=== PATIENT | female | born 1975 | race Caucasian/White ===

== ENCOUNTER 2017-07-26 22:27 | Emergency (ER) | payer OTHER ==
[~2017-07-26] VITALS: Ht 147.3 cm; Wt 70.3 kg
[2017-07-26 22:36] VITALS: BP 143/90
--- NOTE | 2017-07-26 23:56 | NUR ---
TO ER BED 03
[2017-07-26 23:58] VITALS: BP 143/90
--- NOTE | 2017-07-27 00:01 | NUR ---
PATIENT PRESENTS TO ED WITH C/O HEADACHE X 5 HRS. HX. MIGRAINE PT DENIES N/V/D; SKIN IS PINK/WARM/DRY; AAOX4 WITH EVEN AND STEADY GAIT; LUNGS CLEAR BL; HR EVEN AND REGULAR; PT DENIES ANY FEVER, CP, SOB, OR COUGH AT THIS TIME; PATIENT STATES PAIN OF 10/10 AT THIS TIME; VSS; PATIENT POSITIONED FOR COMFORT; HOB ELEVATED; BEDRAILS UP X2; BED DOWN. ER MD MADE AWARE OF PT STATUS.
[2017-07-27] MEDS ORDERED: METOCLOPRAMIDE 10 MG/2 ML INJ VIAL IVP ONE (01:15)
[2017-07-27] MEDS ORDERED: KETOROLAC 30 MG/ML VIAL IVP ONE (01:15)
[2017-07-27] MEDS ORDERED: NACL 0.9% 1,000 ML IV ONE (01:15)
[2017-07-27] MEDS ORDERED: ACETAMINOPHEN EXTRA STRENGTH 500 MG TAB PO ONE (01:15)
[2017-07-27] MEDS ORDERED: DEXAMETHASONE 10 MG/ML VIAL IVP ONE (02:15)
== END 2017-07-27 03:25 | disposition home or self-care (01) ==
LOC: MED 22:27
DX: G43.909 Migraine, unspecified, not intractable, without status migrainosus (principal); F17.200 Nicotine dependence, unspecified, uncomplicated; Z88.2 Allergy status to sulfonamides; Z88.5 Allergy status to narcotic agent; Z90.49 Acquired absence of other specified parts of digestive tract
CPT/HCPCS: 81002; 81025; 96361; 96374; 96375; 99284; J1100; J1885; J2765; J7030

== ENCOUNTER 2018-09-01 21:53 | Emergency (ER) | payer OTHER ==
[~2018-09-01] VITALS: Ht 147.3 cm; Wt 72.6 kg
[2018-09-01 22:06] VITALS: BP 134/108
--- NOTE | 2018-09-01 22:20 | NUR ---
PT BIB FAMILY C/O SOB X4 HOURS AGO. PT STATES SHE WAS DRIVING HOME AND HAD SUDDEN ONSET OF SOB. LUNG SOUNDS COARSE IN UPPER LOBES BL. MILD LABORED BREATHING. DENIES RECENT ILLNESS, FEVER, CHILLS, OR CP. --DENIES N/V/D. AAOX4. SKIN WARM DRY INTACT. PT IN BED; BED IN LOWER LOCKED POSITION. ER MD MADE AWARE OF PT STATUS. PMH: DENIES RX: DENIES
[2018-09-01] MEDS ORDERED: RACEPINEPHRINE 2.25% 13.5 MG/0.5 ML NEBU INH ONE (23:05)
--- NOTE | 2018-09-01 23:07 | NUR ---
PT TO RADIOLOGY VIA WHEELCHAIR BY TECH.
[2018-09-02 00:04] VITALS: BP 136/70
--- NOTE | 2018-09-02 00:04 | NUR ---
Patient discharged with v/s stable. Written and verbal after care instructions given and explained. Patient alert, oriented and verbalized understanding of instructions. Ambulatory with steady gait. All questions addressed prior to discharge. ID band removed. Patient advised to follow up with PMD. Rx of PROMETHAZINE DM given. Patient educated on indication of medication including possible reaction and side effects. Opportunity to ask questions provided and answered.
== END 2018-09-02 00:04 | disposition home or self-care (01) ==
LOC: MED 21:53
DX: J04.0 Acute laryngitis (principal); Z88.5 Allergy status to narcotic agent
CPT/HCPCS: 70360; 81002; 81025; 94640; 99283

== ENCOUNTER 2019-03-02 13:16 | Emergency (ER) | payer OTHER ==
[~2019-03-02] VITALS: Ht 144.8 cm; Wt 79.4 kg
[2019-03-02 13:28] VITALS: BP 136/59
--- NOTE | 2019-03-02 13:31 | NUR ---
PT AMBULATED TO LOBBY AT THIS TIME, VSS.
--- NOTE | 2019-03-02 14:00 | NUR ---
PT TAKEN TO CHAIR E.
--- NOTE | 2019-03-02 14:10 | NUR ---
43/F presents to ED with complaints of left eye pain starting last night. Pt describes pain as non provoked, constant, throbbing with some numbness to left side of face. Patient noted with swelling to left eye lid. Pt denies changes in vision. Denies any injury or trauma. Denies wearing contacts. No drainage noted.
[2019-03-02] MEDS ORDERED: KETOROLAC 60 MG/2 ML VIAL IM ONE (14:40)
[2019-03-02 15:14] VITALS: BP 136/59
--- NOTE | 2019-03-02 15:14 | NUR ---
Patient discharged with v/s stable. Written and verbal after care instructions given and explained. Patient alert, oriented and verbalized understanding of instructions. Ambulatory with steady gait. All questions addressed prior to discharge. ID band removed. Patient advised to follow up with PMD. Rx of Ibuprofen 600mg given. Patient educated on indication of medication including possible reaction and side effects. Opportunity to ask questions provided and answered.
== END 2019-03-02 15:14 | disposition home or self-care (01) ==
LOC: MED 13:16
DX: H00.014 Hordeolum externum left upper eyelid (principal); Z88.2 Allergy status to sulfonamides; Z88.5 Allergy status to narcotic agent
CPT/HCPCS: 96372; 99283; J1885

== ENCOUNTER 2019-07-13 15:25 | Emergency (ER) | payer OTHER ==
[~2019-07-13] VITALS: Ht 149.9 cm; Wt 77.1 kg
[2019-07-13 15:30] VITALS: BP 134/95
--- NOTE | 2019-07-13 15:45 | NUR ---
PT SENT TO LOBBY AFTER EKG PERFORMED TO WAIT FOR AVAILABED BED.
--- NOTE | 2019-07-13 16:29 | NUR ---
PT AMBULATED TO BED 11.
--- NOTE | 2019-07-13 17:31 | NUR ---
43 Y/F c/o chest pain since last night radiating to the ule and back. took tramadol w/o relief hx denies
--- NOTE | 2019-07-13 17:42 | NUR ---
Dr Altman evaluating aao x4 pt at bedside
[2019-07-13] MEDS ORDERED: KETOROLAC 30 MG/ML VIAL IVP ONE (17:50)
[2019-07-13 18:23] LABS: BASOPHILS # (AUTO) 0.1 K/uL (0.00-0.22); BASOPHILS % (AUTO) 0.6 % (0.0-2.0); EOSINOPHILS # (AUTO) 0.1 K/uL (0-0.4); EOSINOPHILS % (AUTO) 0.7 % (0.0-4.0); HEMATOCRIT 44.7 % (36-48); HEMOGLOBIN 14.6 g/dL (12.0-16.0); LYMPHOCYTES # (AUTO) 1.4 K/uL (2.5-16.5); LYMPHOCYTES % (AUTO) 12.4 % (20.5-51.1); MEAN CORPUSCULAR HEMOGLOBIN 30 pg (27-31); MEAN CORPUSCULAR HGB CONC 33 g/dL (33-37); MEAN CORPUSCULAR VOLUME 91.2 fL (80-94); MONOCYTES # (AUTO) 0.6 K/uL (0.8-1.0); MONOCYTES % (AUTO) 5.2 % (1.7-9.3); NEUTROPHILS % (AUTO) 81.1 % (42.2-75.2); PLATELET COUNT (AUTO) 298 K/uL (140-450); RED CELL DISTRIBUTION WIDTH 13.6 % (11.6-13.7); WHITE BLOOD COUNT (AUTO) 11.1 K/uL (4.8-10.8)
[2019-07-13 18:55] LABS: ANION GAP 15.6 (8-16); CARBON DIOXIDE 22.2 mmol/L (21-32); CREATININE 0.8 mg/dL (0.6-1.3); POTASSIUM 3.8 mmol/L (3.5-5.1)
--- NOTE | 2019-07-13 19:25 | NUR ---
Nolvia estrada in [facility] - 07/13/19 at 1926 by JEFF PATIENT IS SITTING QUIETLY IN BED WITH MOTHER AT BEDSIDE.
--- NOTE | 2019-07-13 19:25 | NUR ---
PATIENT IS SITTING QUIETLY IN BED. WILL CONTINUE TO MONITOR.
[2019-07-13 19:32] VITALS: BP 127/56
--- NOTE | 2019-07-13 19:32 | NUR ---
Patient discharged with v/s stable. Written and verbal after care instructions given and explained. Patient alert, oriented and verbalized understanding of instructions. Ambulatory with steady gait. All questions addressed prior to discharge. ID band removed. Patient advised to follow up with PMD. Rx of PRILOSEC,MOTRIN,NORCO given. Patient educated on indication of medication including possible reaction and side effects. Opportunity to ask questions provided and answered.
== END 2019-07-13 19:32 | disposition home or self-care (01) ==
LOC: MED 15:25
DX: R07.9 Chest pain, unspecified (principal); F17.210 Nicotine dependence, cigarettes, uncomplicated; Z90.49 Acquired absence of other specified parts of digestive tract; Z88.5 Allergy status to narcotic agent; Z88.2 Allergy status to sulfonamides
CPT/HCPCS: 36415; 80048; 84484; 85025; 93005; 96374; 99284; J1885

== ENCOUNTER 2020-11-21 23:45 | Emergency (ER) | payer OTHER ==
[~2020-11-21] VITALS: Ht 147.3 cm; Wt 86.2 kg
[2020-11-22] VITALS: BP 129/90
[2020-11-22] MEDS ORDERED: diphenhydrAMINE 50 MG/ML VIAL IVP ONE (00:35)
[2020-11-22] MEDS ORDERED: AMPICILLIN/SULBACTAM 3 GM in NACL 0.9% 100 ML IV ONE (00:35)
[2020-11-22] MEDS ORDERED: KETOROLAC 30 MG/ML VIAL IVP ONE (00:35)
[2020-11-22] MEDS ORDERED: methylPREDNISolone SS 125 MG in WATER STERILE 2 ML IV ONE (00:35)
[2020-11-22] MEDS ORDERED: methylPREDNISolone SS 125 MG/2 ML VIAL ONE (00:45)
[2020-11-22] MEDS ORDERED: AMPICILLIN/SULBACTAM 3 GM VIAL ONE (00:45)
[2020-11-22] MEDS ORDERED: WATER STERILE 10 ML MC ONE (00:45)
[2020-11-22] MEDS ORDERED: CEPH-588 PO (00:53)
[2020-11-22] MEDS ORDERED: FEXO180T82 PO (00:53)
[2020-11-22 02:30] VITALS: BP 129/90
== END 2020-11-22 00:57 | disposition home or self-care (01) ==
LOC: MERGE 23:45 → MED 23:45
DX: T78.49XA Other allergy, initial encounter (principal); L03.114 Cellulitis of left upper limb; J45.909 Unspecified asthma, uncomplicated; Z90.710 Acquired absence of both cervix and uterus; Z98.890 Other specified postprocedural states; Z90.49 Acquired absence of other specified parts of digestive tract; Z88.5 Allergy status to narcotic agent; Z88.6 Allergy status to analgesic agent; X58.XXXA Exposure to other specified factors, initial encounter
CPT/HCPCS: 36415; 87040; 96365; 96375; 99284; J0295; J1200; J1885; J2930

== ENCOUNTER 2020-11-24 12:44 | Emergency (ER) | payer OTHER ==
[~2020-11-24] VITALS: Ht 147.3 cm; Wt 86.2 kg
[~2020-11-24 12:44] MED LIST: CEPH-588 PO; FEXO180T82 PO
[2020-11-24 12:55] VITALS: BP 125/90
--- NOTE | 2020-11-24 12:55 | NUR ---
PATIENT AMBULATED TO BED 11.
--- NOTE | 2020-11-24 13:09 | NUR ---
DR. HDEZ AT BEDSIDE EVALUATING PATIENT.
--- NOTE | 2020-11-24 13:21 | NUR ---
45/F presents to ED with c/o left arm pain since Saturday. Patient states she got a new tattoo on Saturday and later in the evening began experiencing pain and irritation at the site. Patient states she was seen here on Saturday night and prescribed antibiotics and Tramadol for pain, states only mild relief and she felt "sleepy." Upper left arm appears red and swollen, warm to touch, pain worsening with movement, no drainage noted. Denies fever or chills.
[2020-11-24] MEDS ORDERED: CLIN300C2 PO (14:07)
[2020-11-24] MEDS ORDERED: ACET-9527 PO (14:07)
--- NOTE | 2020-11-24 14:18 | NUR ---
Patient discharged with v/s stable. Written and verbal after care instructions given and explained. Patient alert, oriented and verbalized understanding of instructions. Ambulatory with steady gait. All questions addressed prior to discharge. ID band removed. Patient advised to follow up with PMD. Rx of Bonham and Clindamycin given. Patient educated on indication of medication including possible reaction and side effects. Opportunity to ask questions provided and answered.
[2020-11-24 14:19] VITALS: BP 125/90
== END 2020-11-24 14:18 | disposition home or self-care (01) ==
LOC: MED 12:44
DX: L03.114 Cellulitis of left upper limb (principal); Z88.5 Allergy status to narcotic agent; Z88.2 Allergy status to sulfonamides; Z79.899 Other long term (current) drug therapy
CPT/HCPCS: 99283; 99284

== ENCOUNTER 2023-02-15 16:31 | Emergency (ER) | payer OTHER ==
[~2023-02-15] VITALS: Ht 147.3 cm; Wt 96.2 kg
[~2023-02-15 16:31] MED LIST changes: +ACET-9527 PO; +CLIN300C2 PO; +HYD1C TP; +IBUP-2213 PO
[2023-02-15 17:14] VITALS: BP 151/101; PULSE 103; RESP 18; TEMP 97.7; O2SAT 96
[2023-02-15 18:17] LABS: BASOPHILS % (AUTO) 0.7 % (0.0-2.0); EOSINOPHILS # (AUTO) 0.1 K/uL (0-0.4); EOSINOPHILS % (AUTO) 0.9 % (0.0-4.0); HEMATOCRIT 41.4 % (36-48); HEMOGLOBIN 13.9 g/dL (12.0-16.0); LYMPHOCYTES # (AUTO) 1.2 K/uL (2.5-16.5); LYMPHOCYTES % (AUTO) 17.2 % (20.5-51.1); MEAN CORPUSCULAR HEMOGLOBIN 29 pg (27-31); MEAN CORPUSCULAR HGB CONC 34 g/dL (33-37); MEAN CORPUSCULAR VOLUME 87.1 fL (80-94); MONOCYTES # (AUTO) 0.4 K/uL (0.8-1.0); MONOCYTES % (AUTO) 6.5 % (1.7-9.3); NEUTROPHILS # (AUTO) 5.1 K/uL (1.8-7.7); NEUTROPHILS % (AUTO) 74.7 % (42.2-75.2); PLATELET COUNT (AUTO) 300 K/uL (140-450); RED BLOOD CELL COUNT(AUTO) 4.76 MIL/uL (4.20-5.40); RED CELL DISTRIBUTION WIDTH 13.3 % (11.6-13.7); WHITE BLOOD COUNT (AUTO) 6.9 K/uL (4.8-10.8)
[2023-02-15 18:30] VITALS: O2SAT 96
[2023-02-15 18:35] LABS: ALBUMIN 3.6 g/dL (3.4-5.0); CALCIUM 10.6 mg/dL (8.5-10.1); CARBON DIOXIDE 24.1 mmol/L (21-32); POTASSIUM 4.1 mmol/L (3.5-5.1); TOTAL BILIRUBIN 0.3 mg/dL (0.0-1.0); TOTAL PROTEIN, SERUM 7.4 g/dL (6.4-8.2)
[2023-02-15] MEDS ORDERED: LORA-476 PO (19:55)
[2023-02-15 20:17] VITALS: BP 132/93; PULSE 88; RESP 20; TEMP 97.7; O2SAT 95
== END 2023-02-15 20:17 | disposition home or self-care (01) ==
LOC: MED 16:31
DX: R00.0 Tachycardia, unspecified (principal); R00.2 Palpitations; R60.0 Localized edema; F41.9 Anxiety disorder, unspecified; J45.909 Unspecified asthma, uncomplicated; Z90.710 Acquired absence of both cervix and uterus; Z88.2 Allergy status to sulfonamides; Z88.5 Allergy status to narcotic agent; Z79.899 Other long term (current) drug therapy
CPT/HCPCS: 36415; 71045; 71275; 80053; 81025; 83880; 84443; 84484; 85025; 85730; 93005; 93971; 99285; Q0092; Q9967

== ENCOUNTER 2023-12-25 20:45 | Emergency (ER) | payer OTHER ==
[~2023-12-25] VITALS: Ht 144.8 cm; Wt 81.2 kg
[~2023-12-25 20:45] MED LIST changes: +LORA-476 PO
[2023-12-25 20:59] VITALS: BP 118/58; PULSE 70; RESP 14; TEMP 98.6; O2SAT 99
[2023-12-25 22:24] VITALS: O2SAT 98
[2023-12-25] MEDS ORDERED: CEPH-588 PO (23:36)
== END 2023-12-25 23:53 | disposition home or self-care (01) ==
LOC: MED 20:45
DX: L03.113 Cellulitis of right upper limb (principal); J45.909 Unspecified asthma, uncomplicated; Z88.2 Allergy status to sulfonamides; Z88.5 Allergy status to narcotic agent; Z79.899 Other long term (current) drug therapy
CPT/HCPCS: 73130; 99283; Q0092